=== PATIENT | female | born 1955 | race Caucasian/White ===

== ENCOUNTER 2024-05-02 18:32 | Emergency (ER) | payer MEDICARE ==
[~2024-05-02] VITALS: Ht 157.5 cm; Wt 66.0 kg
[~2024-05-02 18:32] MED LIST: ATIVAN0.5 MG OR; ATIVAN0.5 MG PO; CIPROFLOXACN500 MG PO; LORAZEPAM0.5 MG PO; NO; PAXIL40 MG PO; PROAIR HFA IN; ROBITUSSIN AC10 ML PO; SERTRALINE50 MG PO; ZITHROMAX500 MG PO
[2024-05-02] MEDS ORDERED: CLEOCIN300 MG PO (19:12)
[2024-05-02 19:13] VITALS: BP 158/77
[2024-05-02] MEDS ORDERED: KETOROLAC TROMETHAMINE 30 MG/ML SDV IM ONE (19:40)
[2024-05-02] MEDS ORDERED: HYDROcodone 5 MG/Acetaminophen 325 MG/COMBO PO ONE (19:40)
[2024-05-02] MEDS ORDERED: VOLTAREN - GENE75 MG PO (19:52)
[2024-05-02] MEDS ORDERED: TYLENOL # 31 TA1 PO (19:52)
== END 2024-05-02 20:16 | disposition home or self-care (01) ==
LOC: ED 18:32
DX: K04.7 Periapical abscess without sinus (principal); K02.9 Dental caries, unspecified